=== PATIENT | female | born 1955 | race African-American/Black ===

== ENCOUNTER 2024-08-18 12:38 | Inpatient (IN) | payer MEDICARE ==
[~2024-08-18] VITALS: Ht 167.6 cm; Wt 92.2 kg
[2024-08-18] MEDS: SODIUM CHLORIDE 0.9% (SEPSIS BOLUS) IV ONE (14:05)
[2024-08-18] MEDS: LABETALOL 5MG/ML 4ML INJ IV ONE (14:06)
[2024-08-18 14:38] LABS: HEMATOCRIT. 32.8 % (36.0-48.0); HEMOGLOBIN. 10.6 g/dL (12.0-16.0); MEAN CORPUSCULAR HEMOGLOBIN 25.6 pg (28.0-32.0); MEAN CORPUSCULAR HGB CONC 32.5 g/dL (31.0-37.0); MEAN CORPUSCULAR VOLUME 78.8 fL (81.0-99.0); MEAN PLATELET VOLUME 7.6 fl (7.4-10.4); PLATELET 239 x1000/uL (130-400); RED BLOOD CELL COUNT 4.16 mill/uL (4.2-5.4); RED CELL DISTRIBUTION WIDTH 25.9 % (11.6-14.6); WHITE BLOOD COUNT 6.7 x1000/uL (4.5-11.0)
[2024-08-18 14:44] LABS: DIFFERENTIAL COMMENT 1
[2024-08-18 14:48] LABS: PROTHROMBIN TIME 10.8 sec (9.6-11.0)
[2024-08-18 14:53] LABS: CHLORIDE 106 mEq/L (98-107); POTASSIUM 3.5 mEq/L (3.5-5.1); SODIUM 142 mEq/L (136-145)
[2024-08-18 14:54] LABS: CALCIUM 9.2 mg/dL (8.7-10.4); CARBON DIOXIDE 25 mEq/L (21-32)
[2024-08-18 14:59] LABS: CREATININE 1.1 mg/dL (0.6-1.0); GLUCOSE 108 mg/dL (70-105)
[2024-08-18 15:00] LABS: ETHANOL BLOOD < 10 mg/dL (<10); UREA NITROGEN BLOOD 6 mg/dL (9-23)
[2024-08-18 15:01] LABS: ALANINE AMINOTRANSFERASE 9 IU/L (10-49); ALBUMIN 3.5 g/dL (3.2-4.8); ASPARTATE AMINOTRANSFERASE 15 IU/L (<34); BILIRUBIN DIRECT 0.3 mg/dL (<=3.0)
[2024-08-18 15:02] LABS: BILIRUBIN TOTAL 1.4 mg/dL (0.1-1.0); PROTEIN TOTAL 6.9 g/dL (6.0-8.3)
[2024-08-18 15:19] LABS: ANISOCYTOSIS 4+
[2024-08-18 15:20] LABS: HYPOCHROMASIA 1+; MICROCYTOSIS 1+
[2024-08-18 15:21] LABS: TROPONIN I HIGH SENSITIVITY 44 ng/L (3.0-34)
[2024-08-18 15:28] LABS: PLATELET ESTIMATE NORMAL
[2024-08-18] MEDS: HYDRALAZINE 20MG/ML VIAL IV ONE (16:25)
[2024-08-18] MEDS ORDERED: DOCUSATE SODIUM 100MG CAPSULE PO PRN (16:30)
[2024-08-18] MEDS ORDERED: HYDROCODONE/ACETAMINOPHEN 5/325MG TABLET PO PRN (16:30)
[2024-08-18] MEDS ORDERED: MORPHINE SULFATE 2 MG/ML INJ (NOT FOR IM USE) IV PRN (16:30)
[2024-08-18] MEDS: SODIUM CHLORIDE 0.9% 1,000 ML IV SCH (16:30)
[2024-08-18] MEDS ORDERED: IPRATROPIUM/ALBUTEROL 0.5-3(2.5)MG/3ML NEB HHN PRN (16:30)
[2024-08-18] MEDS ORDERED: CLONIDINE 0.1MG TABLET PO PRN (16:30)
[2024-08-18] MEDS ORDERED: ONDANSETRON HCL 4MG/2ML INJ IV PRN (16:30)
[2024-08-18] MEDS ORDERED: MAGNESIUM/ALUMINUM HYDROXIDE/SIMETHICONE 30ML UDC PO PRN (16:30)
[2024-08-18] MEDS ORDERED: ACETAMINOPHEN 325MG TABLET PO PRN ×2 (16:30)
[2024-08-18] MEDS ORDERED: GUAIFENESIN 200MG/10ML SUGAR FREE UDC PO PRN (16:30)
[2024-08-18] MEDS ORDERED: NALOXONE HCL 0.4MG/ML VIAL IV PRN (16:45)
[2024-08-18] MEDS: ENOXAPARIN 40MG/0.4ML SYR SUBCUT SCH (17:00)
[2024-08-18] MEDS: ASPIRIN 325MG EC TABLET PO SCH (17:00)
[2024-08-18] MEDS ORDERED: LORAZEPAM 0.5MG TABLET PO PRN (17:15)
[2024-08-18 18:53] VITALS: BP 166/93; PULSE 101; RESP 20; TEMP 36.6; O2SAT 100
[2024-08-18 19:38] LABS: IRON 47 ug/dL (50-170)
[2024-08-18 19:41] LABS: TOTAL IRON BINDING CAPACITY 230 ug/dl (250-425)
[2024-08-18 20:00] VITALS: BP 158/88; PULSE 114; RESP 20; TEMP 36.3; O2SAT 100
[2024-08-18] MEDS ORDERED: ATORVASTATIN CALCIUM 40MG TABLET PO SCH (21:00)
[2024-08-18 21:15] LABS: FOLIC ACID (FOLATE) SERUM 10.91 ng/mL (>5.38); VITAMIN B12 SERUM 645 pg/mL (211-911)
[2024-08-18 21:38] LABS: FERRITIN 236 ng/mL (10-291)
[2024-08-18] MEDS: HYDRALAZINE HCL 10MG TABLET PO SCH (21:43)
[2024-08-18] MEDS: ATORVASTATIN CALCIUM 40MG TABLET PO SCH (21:44)
[2024-08-18 22:00] VITALS: BP 159/89; PULSE 74; RESP 17; TEMP 36.6
[2024-08-19] VITALS: BP_SYST 155; BP_SYST 188; BP_DIAS 71; BP_DIAS 86; PULSE 94; PULSE 99; RESP 19; TEMP 36.2; O2SAT 97
[2024-08-19 04:00] VITALS: BP 142/66; PULSE 83; RESP 19; TEMP 36.2; O2SAT 98
[2024-08-19 08:04] VITALS: BP 173/86; PULSE 86; RESP 20; TEMP 36.6; O2SAT 99
[2024-08-19] MEDS: ASPIRIN 81MG EC TABLET PO SCH (09:55)
[2024-08-19] MEDS: FOLIC ACID 1MG TABLET PO SCH (09:55)
[2024-08-19] MEDS: CLONIDINE 0.1MG TABLET PO SCH (09:55)
[2024-08-19] MEDS: THIAMINE HCL 100MG TABLET PO SCH (09:55)
[2024-08-19] MEDS: AMLODIPINE 5MG TABLET PO SCH (09:55)
[2024-08-19] MEDS: CLOPIDOGREL 75MG TABLET PO SCH (09:55)
[2024-08-19 11:51] VITALS: BP 140/64; PULSE 83; RESP 19; TEMP 36.4; O2SAT 100
[2024-08-19 16:27] VITALS: BP 174/84; PULSE 91; RESP 18; TEMP 36.6; O2SAT 100
[2024-08-19 17:23] LABS: BASOPHILS % 0.3 % (0.0-2.0); EOSINOPHILS % 0.7 % (0.0-5.0); HEMATOCRIT. 30.6 % (36.0-48.0); HEMOGLOBIN. 9.7 g/dL (12.0-16.0); LYMPHOCYTES % 8.8 % (20.0-50.0); MEAN CORPUSCULAR HEMOGLOBIN 25.3 pg (28.0-32.0); MEAN CORPUSCULAR HGB CONC 31.9 g/dL (31.0-37.0); MEAN CORPUSCULAR VOLUME 79.4 fL (81.0-99.0); MEAN PLATELET VOLUME 8.5 fl (7.4-10.4); MONOCYTES % 7.3 % (2.0-8.0); NEUTROPHILS % 82.9 % (40.0-76.0); PLATELET 231 x1000/uL (130-400); RED BLOOD CELL COUNT 3.85 mill/uL (4.2-5.4); WHITE BLOOD COUNT 4.6 x1000/uL (4.5-11.0)
[2024-08-19 17:25] LABS: CHLORIDE 106 mEq/L (98-107); POTASSIUM 3.3 mEq/L (3.5-5.1); SODIUM 141 mEq/L (136-145)
[2024-08-19 17:26] LABS: CARBON DIOXIDE 26 mEq/L (21-32); DIFFERENTIAL COMMENT 1
[2024-08-19 17:27] LABS: CALCIUM 8.8 mg/dL (8.7-10.4)
[2024-08-19 17:31] LABS: CREATINE KINASE MB FRACTION 1.6 ng/mL (0.5-3.6); CREATININE 0.9 mg/dL (0.6-1.0); GLUCOSE 101 mg/dL (70-105); TRIGLYCERIDE 90 mg/dL (0-150); UREA NITROGEN BLOOD < 5 mg/dL (9-23)
[2024-08-19 17:32] LABS: LDL CHOLESTEROL 113 mg/dL (5-100)
[2024-08-19 17:34] LABS: CHOLESTEROL 179 mg/dL (<200); HDL CHOLESTEROL 40 mg/dL (>65)
[2024-08-19 17:35] LABS: T4 FREE 1.13 ng/dL (0.89-1.76)
[2024-08-19 17:36] LABS: THYROID STIMULATING HORMONE 1.53 uIU/mL (0.55-4.78)
[2024-08-19] MEDS: POTASSIUM CHLORIDE 20MEQ/PACKET PO NR (18:54)
[2024-08-19 20:00] VITALS: BP 170/79; PULSE 80; RESP 20; TEMP 36.4; O2SAT 99
[2024-08-20] VITALS: BP 129/43; PULSE 84; RESP 18; TEMP 36.4; O2SAT 97
[2024-08-20 04:00] VITALS: BP 150/72; PULSE 72; RESP 20; TEMP 36.3; O2SAT 96
[2024-08-20 05:10] LABS: CARCINOEMBRYONIC AG - SEND OUT 1.7 ng/mL (0.0-4.7)
[2024-08-20 06:38] LABS: HEMATOCRIT 35.8 % (36.0-48.0); HEMOGLOBIN 11.3 g/dL (12.0-16.0); MEAN CORPUSCULAR HEMOGLOBIN 25.4 pg (28.0-32.0); MEAN CORPUSCULAR HGB CONC 31.4 g/dL (31.0-37.0); MEAN CORPUSCULAR VOLUME 80.8 fL (81.0-99.0); PLATELET 262 x1000/uL (130-400); RED BLOOD CELL COUNT 4.44 mill/uL (4.2-5.4); RED CELL DISTRIBUTION WIDTH 26.3 % (11.6-14.6); WHITE BLOOD COUNT 5.4 x1000/uL (4.5-11.0)
[2024-08-20 06:59] LABS: CARBON DIOXIDE 25 mEq/L (21-32); CHLORIDE 108 mEq/L (98-107); POTASSIUM 3.6 mEq/L (3.5-5.1); SODIUM 142 mEq/L (136-145)
[2024-08-20 07:00] LABS: CALCIUM 9.5 mg/dL (8.7-10.4)
[2024-08-20 07:05] LABS: CREATININE 1.1 mg/dL (0.6-1.0); GLUCOSE 107 mg/dL (70-105); UREA NITROGEN BLOOD < 5 mg/dL (9-23)
[2024-08-20 07:07] LABS: ALANINE AMINOTRANSFERASE 7 IU/L (10-49); ALBUMIN 3.6 g/dL (3.2-4.8); ASPARTATE AMINOTRANSFERASE 15 IU/L (<34); BILIRUBIN TOTAL 1.6 mg/dL (0.1-1.0)
[2024-08-20 08:00] VITALS: BP 150/73; PULSE 70; RESP 18; TEMP 36.6; O2SAT 98
[2024-08-20 12:00] VITALS: BP 138/69; PULSE 81; RESP 18; TEMP 35.9; O2SAT 96
[2024-08-20 14:13] LABS: CLARITY URINE CLEAR (CLEAR); COLOR URINE YELLOW (YELLOW); GLUCOSE URINE NEGATIVE (NEGATIVE); KETONES URINE NEGATIVE (NEGATIVE); LEUKOCYTE ESTERASE URINE 1+ (NEGATIVE); NITRITE URINE NEGATIVE (NEGATIVE); OCCULT BLOOD URINE 2+ (NEGATIVE); PROTEIN URINE NEGATIVE (NEGATIVE); SPECIFIC GRAVITY URINE 1.004 (1.005-1.030); UROBILINOGEN URINE 0.2 E.U./dL (0.2-1.0)
[2024-08-20 14:32] LABS: *AMPHETAMINES SCREEN URINE NEGATIVE (NEGATIVE); *BARBITURATES SCREEN URINE NEGATIVE (NEGATIVE); *BENZODIAZEPINES SCREEN URINE NEGATIVE (NEGATIVE)
[2024-08-20 14:33] LABS: *COCAINE SCREEN URINE NEGATIVE (NEGATIVE); CANNABINOID URINE SCREEN NEGATIVE (NEGATIVE); ECSTASY MDMA SCREEN URINE NEGATIVE (NEGATIVE); METHADONE URINE SCREEN NEGATIVE (NEGATIVE); OPIATES URINE SCREEN NEGATIVE (NEGATIVE); PHENCYCLIDINE URINE SCREEN NEGATIVE (NEGATIVE)
[2024-08-20 14:48] LABS: SQUAMOUS EPITHELIAL CELL URINE FEW /lpf (RARE/1+)
[2024-08-20 14:49] LABS: WBC URINE 0-2 /hpf (0-2)
[2024-08-20 14:50] LABS: BACTERIA URINE TRACE
[2024-08-20 16:00] VITALS: BP 129/79; PULSE 79; RESP 18; TEMP 36.9; O2SAT 100
[2024-08-20 20:00] VITALS: BP 147/70; PULSE 88; RESP 20; TEMP 36.5; O2SAT 99
[2024-08-21] VITALS (8 sets, daily range): BP systolic 129–163; BP diastolic 70–100; PULSE 68–88; RESP 18–20; TEMP 36.3–37; O2SAT 96–100
[2024-08-22] VITALS: BP 158/85; PULSE 82; RESP 20; TEMP 36.4; O2SAT 98
== END 2024-08-22 01:35 | DRG 304 ==
LOC: ER 13:02 → EDBEDREQ 15:21 → EDBEDREQTM 15:21 → ENRESERV 15:30 → 7WST 15:39
PROVIDERS: ADMIT Internal Medicine; ATTEND Internal Medicine
DX: I16.1 Hypertensive emergency (principal); G92.8 Other toxic encephalopathy; G45.9 Transient cerebral ischemic attack, unspecified; N17.9 Acute kidney failure, unspecified; I24.89 Other forms of acute ischemic heart disease; F01.50 Vascular dementia, unspecified severity, without behavioral disturbance, psychotic disturbance, mood disturbance, and anxiety; F10.10 Alcohol abuse, uncomplicated; I10 Essential (primary) hypertension; D50.9 Iron deficiency anemia, unspecified; Z79.899 Other long term (current) drug therapy; Z86.73 Personal history of transient ischemic attack (TIA), and cerebral infarction without residual deficits
CPT/HCPCS: 36415; 71045; 76856; 80048; 80053; 80061; 80076; 80305; 80320; 81003; 82378; 82550; 82553; 82607; 82728; 82746; 82962; 83036; 83540; 83550; 83605; 83735; 83880; 84145; 84439; 84443; 84484; 85025; 85027; 86304; 86850; 86900; 93005; 93306; 97162; 97166; 99291; J0360; J1650; J3490; J7030; G0480